=== PATIENT | male | born 1945 | race Caucasian/White ===

== ENCOUNTER 2022-10-06 13:56 | Emergency (ER) | payer MEDICARE, BC ==
[2022-10-06] MEDS ORDERED: Nitrofurantoin Monohydrate/Macrocrystalline 100 MG Cap PO ONE (13:57)
[2022-10-06] MEDS ORDERED: Tamsulosin 0.4 MG Cap.ER PO ONE (16:01)
[2022-10-06 19:34] VITALS: BP 133/75; PULSE 78
== END 2022-10-06 16:15 | disposition home or self-care (01) ==
LOC: FB.ED 13:56
DX: R31.9 Hematuria, unspecified (principal); Z88.8 Allergy status to other drugs, medicaments and biological substances; Z79.899 Other long term (current) drug therapy; Z79.82 Long term (current) use of aspirin; Z79.84 Long term (current) use of oral hypoglycemic drugs
CPT/HCPCS: 51702; 99283; A9270-GY

== ENCOUNTER 2022-10-31 23:27 | Emergency (ER) | payer MEDICARE, BC ==
[2022-11-01 02:05] VITALS: BP 145/65; PULSE 92
== END 2022-11-01 01:25 | disposition home or self-care (01) ==
LOC: FB.ED 23:27
DX: R33.9 Retention of urine, unspecified (principal); R31.9 Hematuria, unspecified; I48.91 Unspecified atrial fibrillation; I10 Essential (primary) hypertension; E11.9 Type 2 diabetes mellitus without complications; Z88.8 Allergy status to other drugs, medicaments and biological substances; Z79.899 Other long term (current) drug therapy; Z79.01 Long term (current) use of anticoagulants
CPT/HCPCS: 51702; 99283